=== PATIENT | female | born 1950 | race Caucasian/White ===

== ENCOUNTER 2024-01-23 09:45 | Outpatient (AMB) | payer BC, SELFPAY ==
--- NOTE | 2024-01-23 10:22 | MHC.PC.OV ---
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 Rice. She would like an order for mammogram. Allergies acetaminophen [From Vicodin] Allergy (Mild, Verified 01/23/24 10:33) Hives hydrocodone [From Vicodin] Allergy (Mild, Verified 01/23/24 10:33) Hives Medication List - Last Reconciled 01/23/24 by Michael Mcnally MD calcium-vitamin D3-vitamin K 650 mg-12.5 mcg-40 mcg (Viactiv) tabs PO lutein-zeaxanthin 25-5 mg caps PO multivitamin 1 tab PO DAILY verapamil ER 125 mg PO DAILY Tobacco use date assessed: 01/23/24 Fall risk assessment: No Falls in past year Last assessed Fall Risk: 01/23/24 Dental Screening Dental Screen Date: 01/23/24 Did you have a dental visit in the last 12 months?: Yes Did you have a dental problem in the last 6 months where you did not have access to dental care?: No Was dental information given to patient?: Patient has dentist HPI 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 ?? Prior PCP:? Dr Hall Last office visit/CPE:? June for HTN. CPE 1yr Acute issue(s):? Needs Mammogram L ear pusitile tinitus & has Carotid U/S ?? PMHx:? SVT seeing licensed aircraft maintenance engineer, Dr. Rice, Diverticulitis, Colon Polyps. SurgHx:? Lap partial colectomy 2010 for diverticulitis. B/l knee replacements FH: CVAs SocHx:? Quit 46 yrs ago, EtOH rare. 2022 Colonoscopy w/ polyps & f/u May 2025. 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 Hypertension Surgical History (Updated 01/23/24 @ 10:47 by Erinn Ellis CMA) History of bilateral knee replacement Family History (Updated 01/23/24 @ 10:50 by Erinn Ellis CMA) Mother COPD (chronic obstructive pulmonary disease) Emphysema lung Father Lung cancer Paternal Grandmother Stroke Social History Housing: House Patient Tobacco Use Status: Former Tobacco user e-Cigarette/Vaping Use: Never Used service: No Current occupational status: retired Cognitive needs: No Hearing needs: No Vision needs: Yes (Patient wears glasses) Questionnaire PHQ-9 Over the last 2 weeks, how often have you been bothered by any of the following problems? 1. Little interest or pleasure in doing things: not at all 2. Feeling down, depressed, or hopeless: not at all 3. Trouble falling or staying asleep, or sleeping too much: not at all 4. Feeling tired or having little energy: not at all 5. Poor appetite or overeating: not at all 6. Feeling bad about yourself - or that you are a failure or have let yourself or your family down: not at all 7. Trouble concentrating on things, such as reading the newspaper or watching television: not at all 8. Moving or speaking so slowly that other people could have noticed. Or the opposite - being so fidgety or restless that you have been moving around a lot more than usual: not at all 9. Thoughts that you would be better off or of hurting yourself in some way: not at all Total score: 0 Depression Screening Interpretation: Negative Depression Screening Done: Yes 38415 - PHQ-9 Billing: Yes Source: Developed by Drs. Wade Mcginnis, Sandrine Priest, Brodie Tate and colleagues, with an educational julia from [employer]. Thrive Questionnaire Date Thrive assessed: 01/23/24 I am a: Patient What is your living situation today?: I have a steady place to live Within the past 12 months, did the food you bought not last and you didn't have the money to get more?: Never true Within the past 12 months, did you worry whether your food would run out before you got money to buy more?: Never true Do you have trouble paying for medicines?: No Do you have trouble getting transportation to medical appointments?: No Do you have trouble paying your heating and electricity bill?: No Do you have trouble taking care of your child, family member or friend?: No Do you have trouble with day-to-day activities such as bathing, preparing meals, shopping, managing finances, etc.?: No Are you currently unemployed and looking for a job?: No Are you interested in more education?: No THRIVE Score: 0 AUDIT C Alcohol Use Questionnaire (AUDIT-C) 1. How often do you have a drink containing alcohol?: Never 3. How often do you have six or more drinks on one occasion?: Never Total Score: 0 HARRISON-7 AMB Questionnaire HARRISON-7 Date HARRISON - 7 assessed: 01/23/24 Feeling nervous, anxious, or on edge: 0 = Not at all Not being able to stop or control worryin = Not at all Worrying too much about different things: 0 = Not at all Trouble relaxin = Not at all Being so restless that it is hard to sit still: 0 = Not at all Becoming easily annoyed or irritable: 0 = Not at all Feeling afraid as if something awful might happen: 0 = Not at all Total HARRISON-7 score (0-4 normal; 5-9 mild; 10-14 moderate; 15-21 severe): 0 Source: Developed by Drs. Wade Mcginnis, Sandrine Priest, Brodie Tate and colleagues, with an educational julia from [employer]. HARRISON-7 Assessment Billing HARRISON-7 Assessment Tool: HARRISON-7 Assessment 13024 Review of Systems Const Denies chills, Denies fatigue, Denies fever(s), Denies headache(s) and Denies weakness ENT Denies dizziness and Denies headache(s) Card Denies chest pain, Denies lightheadedness, Denies dyspnea and Denies other (Palpitations) Resp Denies cough, Denies dyspnea, Denies wheezing and Denies other ( shortness of breath) Musc Denies numbness and Denies tingling Neuro Denies dizziness, Denies headache(s), Denies numbness, Denies tingling, Denies paresthesias and Denies weakness Psych Denies anxiety and Denies depression Endo Denies fatigue Aller/Immun Denies wheezing Physical exam (Primary Care) Vital Signs: Last Vital Signs Pulse 67 01/23/24 10:26 BP 130/72 01/23/24 10:26 Pulse Ox 97 01/23/24 10:26 Oxygen Delivery Method Room Air 01/23/24 10:26 BMI result Body Mass Index 31.5 Tobacco/Smoking Status: Tobacco use Status Tobacco use date assessed 01/23/24 01/23/24 10:54 Patient Tobacco Use Status Former Tobacco user 01/23/24 10:54 e-Cigarette/Vaping Use Never Used 01/23/24 10:54 PHQ-9: PHQ-9 Score PHQ-9: Total score 0 01/23/24 10:54 Depression Screening Interpretation: Negative Thrive Assessment: Date of Thrive Assessment Date Thrive assessed 01/23/24 01/23/24 10:54 Const General: no acute distress and well developed Nutritional Appearance: well nourished Orientation/consciousness: patient oriented x3 HENMT Head: Yes normocephalic and Yes atraumatic Eyes General: appearance normal, both eyes and all related structures Pupils: Equal, round and reactive pupils present EOM: EOMs intact bilaterally Resp Effort & Inspection: normal respiratory effort Auscultation: clear to auscultation bilaterally Cardio Rate: regular rate Rhythm: regular rhythm Heart sounds: S1 normal heart sound present, S2 normal heart sound present, no gallops, no murmurs and no rubs Neuro General: patient oriented x3 and gait normal Cranial nerves: Yes Equal, round and reactive pupils present Psych Affect: normal affect Assessment and Plan Assessment & Plan (1) Hypertension: Code(s): I10 - Essential (primary) hypertension Plan: Blood?pressure?is?controlled?on?verapamil?which?is?also?used?for?her?SVTs.??Goal?is?less?than?140/90 Continue?current?medication (2) SVT (supraventricular tachycardia): Code(s): I47.10 - Supraventricular tachycardia, unspecified Plan: Heart?rate?is?controlled Continue?verapamil Follow-up?with?Cardiology?as?recommended (3) Pulsatile tinnitus, left ear: Code(s): H93.A2 - Pulsatile tinnitus, left ear Plan: Pulsatile?tinnitus?with?left?carotid?bruit She?has?a?carotid?ultrasound?ordered?by?her?licensed aircraft maintenance engineer?already Follow-up?with?Cardiology (4) Bruit: Code(s): R09.89 - Other specified symptoms and signs involving the circulatory and respiratory systems Plan: As?above (5) Laboratory exam ordered as part of routine general medical examination: Code(s): Z00.00 - Encounter for general adult medical examination without abnormal findings Plan: Check?labs Plan Patient?will?get?mammogram?at?[facility]. Order?is?in We?can?follow-up?on?this?at?her?next?visit?if?it?is?available Orders: Orders Complete Blood Count Auto Diff Today Z00.00 - Encounter for general adult medical examination without abnormal findings MM tomosynthesis screening BI Today Z12.31 - Encounter for screening mammogram for malignant neoplasm of breast Vitamin D 25-OH Total Today E55.9 - Vitamin D deficiency, unspecified Comprehensive [place]. Panel Fast Today Z00.00 - Encounter for general adult medical examination without abnormal findings Lipid Panel Today Z00.00 - Encounter for general adult medical examination without abnormal findings Microalbumin, Random (w Creat) Today I10 - Essential (primary) hypertension TSH reflex Free T4 Today Z00.00 - Encounter for general adult medical examination without abnormal findings UA and rflx microscopic Today Z00.00 - Encounter for general adult medical examination without abnormal findings Medications: New verapamil ER 120 mg PO DAILY Coding Level of Care Code New Pt Level 3 (53045) Diagnoses Hypertension I10 SVT (supraventricular tachycardia) I47.10 Pulsatile tinnitus, left ear H93.A2 Bruit R09.89 Laboratory exam ordered as part of routine general medical examination Z00.00 Additional Codes HARRISON-7 Assessment Billing - HARRISON-7 Assessment Tool: HARRISON-7 Assessment [id number] ([id number])
[2024-01-23 10:26] VITALS: BP 130/72; PULSE 67; O2SAT 97; BMI 31.5
== END 2024-01-23 11:27 | disposition home or self-care (01) ==
PROVIDERS: PCP Family Medicine; Visit Provider Family Medicine
DX: I10 Essential (primary) hypertension (principal); I47.10 Supraventricular tachycardia, unspecified; H93.A2 Pulsatile tinnitus, left ear; R09.89 Other specified symptoms and signs involving the circulatory and respiratory systems
CPT/HCPCS: 99203

== ENCOUNTER 2024-04-09 10:14 | Outpatient (AMB) | payer BC, SELFPAY ==
--- NOTE | 2024-04-09 10:28 | MHC.PC.OV ---
Vital Signs 04/09/24 10:29 Height 5 ft 4.5 in Weight 184 lb 2 oz BMI 31.1 BP 118/70 Blood Pressure Location Lt brachial Position Sitting Respiration 14 Pulse 76 Pulse Source Pulse Oximeter Pulse Oximetry (%) 96 Oxygen Delivery Method Room Air Intake Visit Reasons: CPE with f/u labs Intake Note: physical and follow up on labs. Would like SVT removed from chart. She never had it, she has atrial tachycardia Allergies verapamil Allergy (Severe, Verified 04/09/24 11:02) Constipation acetaminophen [From Vicodin] Allergy (Mild, Verified 04/09/24 10:37) Hives hydrocodone [From Vicodin] Allergy (Mild, Verified 04/09/24 10:37) Hives aliskiren [From Tekturna] Allergy (Unknown, Verified 04/09/24 11:02) tachycardia amlodipine Allergy (Unknown, Verified 04/09/24 11:02) Palpitations hydrochlorothiazide Allergy (Unknown, Verified 04/09/24 11:02) swollen tongue and mouth dryness lisinopril Allergy (Unknown, Verified 04/09/24 11:02) dry cough metoprolol Allergy (Unknown, Verified 04/09/24 11:02) hair loss and dry mouth atenolol Adverse Reaction (Verified 04/09/24 11:02) Hair loss and dry mouth atenolol Allergy (Unknown, Uncoded 04/09/24 11:02) hair loss and mouth dryness Medication List - Last Reconciled 04/09/24 by Esmer Morfin PA-C calcium-vitamin D3-vitamin K 650 mg-12.5 mcg-40 mcg (Viactiv) tabs PO docusate sodium (Colace) 100 mg PO DAILY [fiber gummies .] lutein-zeaxanthin 25-5 mg caps PO multivitamin 1 tab PO DAILY peg 400-propylene glycol 0.4-0.3 % (Systane (propylene glycol)) 2 drps ophthalmic (eye) BID-QID PRN verapamil ER 120 mg PO DAILY Tobacco use date assessed: 01/23/24 Dental Screening Dental Screen Date: 01/23/24 HPI CPE with f/u labs HPI Details Patient is a 73-year-old female who presents today for a physical exam. She recently established care with Dr. Mcnally. -she had labs done at [facility] which were overall reassuring. Her glucose was slightly elevated at 103. Had an A1c within the last year and states it was 5.4. No polyuria or polydispsia. Renal function and lfts were wnl. No anemia. TSH was WNL. Pulm: gets bronchitis every fall/winter and would like a new steroid inhaler. flovent not on formulary CV: Blood pressure today in the office is 118/70. She has a history of atrial tachycardia and hypertension. Controlled with verapamil 120 mg. She had a carotid ultrasound in January which was overall reassuring. Her LDL was 116, HDL 82, trigs 81, total cholesterol 212. Musculoskeletal: has had knees replaced and will need prophlyatic antibiotics. 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 Hypertension Surgical History (Updated 01/23/24 @ 10:47 by Erinn Ellis [facility]) History of bilateral knee replacement Family History (Updated 04/09/24 @ 10:44 by Kyleigh Haskins CMA) Mother COPD (chronic obstructive pulmonary disease) Emphysema lung Father Prostate cancer Paternal Grandmother Stroke Social History Housing: House Patient Tobacco Use Status: Former Tobacco user e-Cigarette/Vaping Use: Never Used service: No Current occupational status: retired Cognitive needs: No Hearing needs: No Vision needs: Yes (Patient wears glasses) Questionnaire PHQ-9 Over the last 2 weeks, how often have you been bothered by any of the following problems? 1. Little interest or pleasure in doing things: not at all 2. Feeling down, depressed, or hopeless: not at all 3. Trouble falling or staying asleep, or sleeping too much: not at all 4. Feeling tired or having little energy: not at all 5. Poor appetite or overeating: not at all 6. Feeling bad about yourself - or that you are a failure or have let yourself or your family down: not at all 7. Trouble concentrating on things, such as reading the newspaper or watching television: not at all 8. Moving or speaking so slowly that other people could have noticed. Or the opposite - being so fidgety or restless that you have been moving around a lot more than usual: not at all 9. Thoughts that you would be better off or of hurting yourself in some way: not at all Total score: 0 Depression Screening Interpretation: Negative Depression Screening Done: Yes 81078 - PHQ-9 Billing: Yes Source: Developed by Drs. Wade Mcginnis, Sandrine Priest, Brodie Tate and colleagues, with an educational julia from [employer]. Thrive Questionnaire Date Thrive assessed: 04/09/24 I am a: Patient What is your living situation today?: I have a steady place to live Within the past 12 months, did the food you bought not last and you didn't have the money to get more?: Never true Within the past 12 months, did you worry whether your food would run out before you got money to buy more?: Never true Do you have trouble paying for medicines?: No Do you have trouble getting transportation to medical appointments?: No Do you have trouble paying your heating and electricity bill?: No Do you have trouble taking care of your child, family member or friend?: No Do you have trouble with day-to-day activities such as bathing, preparing meals, shopping, managing finances, etc.?: No Are you currently unemployed and looking for a job?: No Are you interested in more education?: No Please select the resources that you would like help with: None THRIVE Score: 0 HARRISON-7 AMB Questionnaire HARRISON-7 Date HARRISON - 7 assessed: 01/23/24 Feeling nervous, anxious, or on edge: 0 = Not at all Not being able to stop or control worryin = Not at all Worrying too much about different things: 0 = Not at all Trouble relaxin = Not at all Being so restless that it is hard to sit still: 0 = Not at all Becoming easily annoyed or irritable: 0 = Not at all Feeling afraid as if something awful might happen: 0 = Not at all Total HARRISON-7 score (0-4 normal; 5-9 mild; 10-14 moderate; 15-21 severe): 0 Source: Developed by Drs. Wade Mcginnis, Sandrine Priest, Brodie Tate and colleagues, with an educational julia from [employer]. HARRISON-7 Assessment Billing HARRISON-7 Assessment Tool: HARRISON-7 Assessment [id number] Physical exam (Primary Care) Tobacco/Smoking Status: Tobacco use Status Tobacco use date assessed 01/23/24 04/09/24 10:31 Patient Tobacco Use Status Former Tobacco user 04/09/24 10:31 e-Cigarette/Vaping Use Never Used 04/09/24 10:31 Depression Screening Interpretation: Negative Thrive Assessment: Date of Thrive Assessment Date Thrive assessed 01/23/24 04/09/24 10:31 Const Orientation/consciousness: patient oriented x3 HENMT Ears: hearing grossly normal bilaterally and TM's normal bilaterally General nose exam: No nasal polyps present Face and sinus: Yes sinuses nontender Mouth: Normal oral and palatal mucosa present Eyes Pupils: Equal, round and reactive pupils present EOM: EOMs intact bilaterally Neck Neck: Yes full ROM and Yes no lymphadenopathy Thyroid: Thyroid normal Chest Chest palpation & inspection: normal inspection of the chest Resp Auscultation: clear to auscultation bilaterally Cardio Rate: regular rate Rhythm: regular rhythm Heart sounds: S1 normal heart sound present and S2 normal heart sound present Peripheral pulses: Peripheral pulses 2+ throughout GI Other: Soft, nontender Auscultation: normal bowel sounds Rectal Exam - Female: deferred General: Yes no CVA tenderness Back/Spine/Pelvis Other: Nontender Back: no CVA tenderness Skin General skin exam: no rashes or lesions noted Neuro General: patient oriented x3, gait normal, CN's II-XI intact bilaterally and deep tendon reflexes 2+ bilaterally Cranial nerves: Yes Equal, round and reactive pupils present Motor exam (neuro): 5/5 motor strength present throughout Sensory Exam: double simultaneous stimulation for sensation normal Coordination: [id number] test normal and Romberg test negative Extrem General: Yes normal to inspection and Yes full ROM Psych Affect: normal affect Attitude: cooperative Thought process: Normal thought process present Thought content: Normal thought content present Insight: Good insight present (Psych) Judgement: Good judgement present (Psych) Assessment and Plan Assessment & Plan (1) Routine general medical examination at a health care facility: Code(s): Z00.00 - Encounter for general adult medical examination without abnormal findings Plan: hm reviewed labs reviewed (2) Hypertension: Code(s): I10 - Essential (primary) hypertension Plan: wnl continue current plan Orders: Referrals Dermatology Referral Z12.83 - Encounter for screening for malignant neoplasm of skin Medications: New budesonide 90 mcg/actuation 1 inh inhalation Q12H 30 days 1 ea 3RF budesonide 90 mcg/actuation 1 inh inhalation Q12H 30 days 1 ea 3RF Patient Instructions: f/u 6 months or sooner prn. pt understands and agrees with the plan. Coding Level of Care Code Est Pt Prev Care >65y(70021) Diagnoses Routine general medical examination at a health care facility Z00.00 Hypertension I10 Additional Codes HARRISON-7 Assessment Billing - HARRISON-7 Assessment Tool: HARRISON-7 Assessment [id number] ([id number])
[2024-04-09 10:29] VITALS: BP 118/70; PULSE 76; RESP 14; O2SAT 96; BMI 31.1
== END 2024-04-09 11:21 | disposition home or self-care (01) ==
PROVIDERS: PCP Physician Assistant; Visit Provider Physician Assistant
DX: Z00.00 Encounter for general adult medical examination without abnormal findings (principal); I10 Essential (primary) hypertension
CPT/HCPCS: 99397

== ENCOUNTER 2024-10-15 09:52 | Outpatient (AMB) | payer BC, SELFPAY ==
--- NOTE | 2024-10-15 10:10 | A.OFFPC_ITS ---
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 Zinc Required: No Allergies verapamil Allergy (Severe, Verified 10/15/24 10:11) Constipation acetaminophen [From Vicodin] Allergy (Mild, Verified 10/15/24 10:11) Hives hydrocodone [From Vicodin] Allergy (Mild, Verified 10/15/24 10:11) Hives aliskiren [From Tekturna] Allergy (Unknown, Verified 10/15/24 10:11) tachycardia amlodipine Allergy (Unknown, Verified 10/15/24 10:11) Palpitations hydrochlorothiazide Allergy (Unknown, Verified 10/15/24 10:11) swollen tongue and mouth dryness lisinopril Allergy (Unknown, Verified 10/15/24 10:11) dry cough metoprolol Allergy (Unknown, Verified 10/15/24 10:11) hair loss and dry mouth atenolol Adverse Reaction (Verified 10/15/24 10:11) Hair loss and dry mouth atenolol Allergy (Unknown, Uncoded 10/15/24 10:11) hair loss and mouth dryness Tobacco use date assessed: 10/15/24 Dental Screening Dental Screen Date: 01/23/24 HPI htn HPI Details Patient is a 74-year-old female who presents today for a f/u. -she had labs done at [facility] which wer e overall reassuring. Her glucose was slightly elevated at 103. Had an A1c within the last year and states it was 5.4. No polyuria or polydispsia. Renal function and lfts were wnl. No anemia. TSH was WNL. Pulm: gets bronchitis every fall/winter and would like a new steroid inhaler. flovent not on formulary CV: Blood pressure today in the office is 132/72. Bps at home have been normal. She has a history of atrial tachycardia and hypertension. Controlled with verapamil 120 mg. She had a carotid ultrasound in January 2024 which was overall reassuring. Her LDL was 116, HDL 82, trigs 81, total cholesterol 212. Follows with Dr. Hansen Musculoskeletal: has had knees replaced and will need prophlyatic antibiotics. 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 Hypertension Surgical History History of bilateral knee replacement Family History Mother COPD (chronic obstructive pulmonary disease) Emphysema lung Father Prostate cancer Paternal Grandmother Stroke Social History (Updated 10/15/24 @ 10:17 by Kyleigh Haskins CMA) Housing: House Alcohol intake: current Patient Tobacco Use Status: Former Tobacco user e-Cigarette/Vaping Use: Never Used Use of substances other than those prescribed or required for medical reasons: No service: No Current occupational status: retired Cognitive needs: No Hearing needs: No Vision needs: Yes (Patient wears glasses) Questionnaire Thrive Questionnaire Date Thrive assessed: 10/08/24 I am a: Patient What is your living situation today?: I have a steady place to live Within the past 12 months, did the food you bought not last and you didn't have the money to get more?: Never true Within the past 12 months, did you worry whether your food would run out before you got money to buy more?: Never true Do you have trouble paying for medicines?: No Do you have trouble getting transportation to medical appointments?: No Do you have trouble paying your heating and electricity bill?: No Do you have trouble taking care of your child, family member or friend?: No Do you have trouble with day-to-day activities such as bathing, preparing meals, shopping, managing finances, etc.?: No Are you currently unemployed and looking for a job?: No Are you interested in more education?: No Please select the resources that you would like help with: None Currently or been in a relationship where the following occur: No concerns repo rted THRIVE Score: 0 AUDIT C Alcohol Use Questionnaire (AUDIT-C) 1. How often do you have a drink containing alcohol?: Never Total Score: 0 HARRISON-7 AMB Questionnaire HARRISON-7 Date HARRISON - 7 assessed: 01/23/24 Feeling nervous, anxious, or on edge: 0 = Not at all Not being able to stop or control worryin = Not at all Worrying too much about different things: 0 = Not at all Trouble relaxin = Not at all Being so restless that it is hard to sit still: 0 = Not at all Becoming easily annoyed or irritable: 0 = Not at all Feeling afraid as if something awful might happen: 0 = Not at all Total HARRISON-7 score (0-4 normal; 5-9 mild; 10-14 moderate; 15-21 severe): 0 Source: Developed by Drs. Wade Mcginnis, Sandrine Priest, Brodie Tate and colleagues, with an educational julia from [employer]. Physical exam (Primary Care) Vital Signs: Last Vital Signs Pulse 67 10/15/24 10:14 Resp 14 10/15/24 10:14 BP 132/72 10/15/24 10:14 Pulse Ox 97 10/15/24 10:14 Oxygen Delivery Method Room Air 10/15/24 10:14 BMI result Body Mass Index 31.3 Tobacco/Smoking Status: Tobacco use Status Tobacco use date assessed 10/15/24 10/15/24 10:17 Patient Tobacco Use Status Former Tobacco user 10/15/24 10:17 e-Cigarette/Vaping Use Never Used 10/15/24 10:17 Thrive Assessment: Date of Thrive Assessment Date Thrive assessed 10/08/24 10/15/24 10:17 Currently or been in a relationship where the following occur: No concerns reported Const Orientation/consciousness: patient oriented x3 HENMT Ears: hearing grossly normal bilaterally Neck Thyroid: Thyroid normal Lymphatic: no lymphadenopathy noted Resp Auscultation: clear to auscultation bilaterally Cardio Rate: regular rate Rhythm: regular rhythm Heart sounds: S1 normal heart sound present and S2 normal heart sound present GI Inspection: Yes normal to inspection Palpation (GI): Soft to palpation and Other GI palpation findings present (nontender, no cva tenderness) Auscultation: normoactive bowel sounds Rectal Exam - Female: deferred Skin General skin exam: no rashes or lesions noted Neuro General: patient oriented x3, gait normal and no focal motor deficits Coding Level of Care Code Est Pt Level 4 (89617) Complex EM visit Add On G2211 Diagnoses Primary hypertension I10 Hypertension type: primary hypertension Osteopenia M85.80 Atopic dermatitis of scalp L20.9 Atrial tachycardia, paroxysmal I47.19 Assessment & Plan Assessment & Plan (1) Hypertension: Code(s): I10 - Essential (primary) hypertension Category: Medical Qualifiers: Hypertension type: primary hypertension Qualified Code(s): I10 - Essential (primary) hypertension Plan: wnl continue current treatment plan (2) Osteopenia: Code(s): M85.80 - Other specified disorders of bone density and structure, unspecified site Category: Medical Plan: stable- does not want to continue with this (3) Atopic dermatitis of scalp: Code(s): L20.9 - Atopic dermatitis, unspecified Category: Medical Plan: improved with betamethasone (4) Atrial tachycardia, paroxysmal: Code(s): I47.19 - Other supraventricular tachycardia Category: Medical Plan: Follows with [facility] Cardiology Orders: Orders Complete Blood Count Auto Diff Today I10 - Essential (primary) hypertension, I47.19 - Other supraventricular tachycardia, L20.9 - Atopic dermatitis, unspecified, M85.80 - Other specified disorders of bone density and structure, unspecified site Lipid Panel Today I10 - Essential (primary) hypertension, I47.19 - Other supraventricular tachycardia, L20.9 - Atopic dermatitis, unspecified, M85.80 - Other specified disorders of bone density and structure, unspecified site TSH reflex Free T4 Today I10 - Essential (primary) hypertension, I47.19 - Other supraventricular tachycardia, L20.9 - Atopic dermatitis, unspecified, M85.80 - Other specified disorders of bone density and structure, unspecified site Vitamin D 25-OH Total Today I10 - Essential (primary) hypertension, I47.19 - Other supraventricular tachycardia, L20.9 - Atopic dermatitis, unspecified, M85.80 - Other specified disorders of bone density and structure, unspecified site Comprehensive [place]. Panel Fast Today I10 - Essential (primary) hypertension, I47.19 - Other supraventricular tachycardia, L20.9 - Atopic dermatitis, unspecified, M85.80 - Other specified disorders of bone density and structure, unspecified site UA CC w/rflx Micro + Cult Today I10 - Essential (primary) hypertension, I47.19 - Other supraventricular tachycardia, L20.9 - Atopic dermatitis, unspecified, M85.80 - Other specified disorders of bone density and structure, unspecified site, Z13.220 - Encounter for screening for lipoid disorders
[2024-10-15 10:14] VITALS: BP 132/72; PULSE 67; RESP 14; O2SAT 97; BMI 31.3
== END 2024-10-15 10:38 | disposition home or self-care (01) ==
PROVIDERS: PCP Physician Assistant; Visit Provider Physician Assistant
DX: I10 Essential (primary) hypertension (principal); M85.80 Other specified disorders of bone density and structure, unspecified site; L20.9 Atopic dermatitis, unspecified; I47.19 Other supraventricular tachycardia

== ENCOUNTER → 2024-10-15 09:52 | Outpatient (BNVA) | payer BC, SELFPAY | PROVIDERS: PCP Physician Assistant; Visit Provider Physician Assistant ==

== ENCOUNTER 2025-04-01 07:29 | Outpatient (REF) | payer BC, SELFPAY ==
[2025-04-01 11:12] LABS: MANUAL DIFF FLAG NO
[2025-04-01 11:13] LABS: Appearance Urine Clear; Glucose Urine UA Negative (Negative); PH 6.5 (5.0-9.0); Specific Gravity - Urine 1.020 (1.005-1.025); UMIC TRIGGER UACC YES
[2025-04-01 11:16] LABS: Hematocrit 40.1 % (37.0-47.0); Hemoglobin 12.8 g/dl (12.0-16.0); Imm Gran Abs Auto 0.03 X10*3/uL (0.00-0.03); Imm Gran Pct Auto 0.4 % (0.0-0.4); Lymphocytes Absolute Auto 2.6 X10*3/uL (1.2-4.9); Mean Corpuscular HGB Conc 31.9 g/dl (31.0-35.0); Mean Corpuscular Hemoglobin 30.8 pg (27.0-33.0); Mean Corpuscular Volume 96.6 fL (80.0-98.0); NRBC Abs Auto 0.000 X10*3/uL (0.0-0.012); NRBC Pct Auto 0.0 /100WBC (0.0-0.2); Platelet Count 261 X10*3/uL (160-400); Red Blood Count 4.15 X10*6/uL (4.20-5.50); White Blood Count 7.9 X10*3/uL (4.8-10.8)
[2025-04-01 11:42] LABS: Alanine Aminotransferase 14 U/L (0-31); Albumin Level 4.2 g/dL (3.5-5.0); Alkaline Phosphatase 96 U/L (39-117); Anion Gap 11 (12-20); Aspartate Amino Transferase 28 U/L (5-31); Blood Urea Nitrogen 16 mg/dL (9-16); Calcium 9.1 mg/dL (8.4-10.2); Carbon Dioxide 29 mmol/L (22-29); Chloride 105 mmol/L (96-108); Cholesterol 202 mg/dL (<200); Estimated Glomerular Filt Rate 55; HDL Cholesterol 69 mg/dL (>40); Potassium 3.8 mmol/L (3.3-5.1); Sodium 141 mmol/L (135-145); Total Protein 6.7 g/dL (6.5-8.0); Triglycerides 89 mg/dL (<150)
== END 2025-04-01 07:30 | disposition home or self-care (01) ==
LOC: HO.WFDLDS 07:29
PROVIDERS: Visit Provider Physician Assistant
DX: Z13.220 Encounter for screening for lipoid disorders (principal); I47.19 Other supraventricular tachycardia; I10 Essential (primary) hypertension; M85.80 Other specified disorders of bone density and structure, unspecified site; L20.9 Atopic dermatitis, unspecified
CPT/HCPCS: 36415; 80053; 80061; 81001; 82306; 84443; 85025

== ENCOUNTER 2025-04-15 07:37 | Outpatient (AMB) | payer BC, SELFPAY ==
--- NOTE | 2025-04-15 08:03 | MHC.PC.OV ---
Vital Signs 04/15/25 08:07 Height 5 ft 4.5 in Weight 184 lb 6 oz BMI 31.2 BP 132/64 Blood Pressure Location Lt brachial Position Sitting Respiration 14 Pulse 65 Pulse Source Pulse Oximeter Pulse Oximetry (%) 97 Oxygen Delivery Method Room Air Intake Visit Reasons: CPE Intake Note: Physical Abalone Processor Required: No Allergies verapamil Allergy (Severe, Verified 04/15/25 08:05) Constipation acetaminophen (From Vicodin) Allergy (Mild, Verified 04/15/25 08:05) Hives hydrocodone (From Vicodin) Allergy (Mild, Verified 04/15/25 08:05) Hives aliskiren (From Tekturna) Allergy (Unknown, Verified 04/15/25 08:05) tachycardia amlodipine Allergy (Unknown, Verified 04/15/25 08:05) Palpitations hydrochlorothiazide Allergy (Unknown, Verified 04/15/25 08:05) swollen tongue and mouth dryness lisinopril Allergy (Unknown, Verified 04/15/25 08:05) dry cough metoprolol Allergy (Unknown, Verified 04/15/25 08:05) hair loss and dry mouth atenolol Adverse Reaction (Verified 04/15/25 08:05) Hair loss and dry mouth atenolol Allergy (Unknown, Uncoded 04/15/25 08:05) hair loss and mouth dryness Medication List - Last Reconciled 04/15/25 by Esmer Morfin PA-C ascorbate calcium (vitamin C) 500 mg PO DAILY beclomethasone dipropionate 40 mcg/actuation (Qvar RediHaler) 1 inh inhalation Q12H PRN calcium-vitamin D3-vitamin K 650 mg-12.5 mcg-40 mcg (Viactiv) tabs PO cholecalciferol (vitamin D3) 50 mcg PO DAILY docusate sodium (Colace) 100 mg PO DAILY fluticasone furoate 100 mcg/actuation (Arnuity Ellipta) 1 inh inhalation DAILY lutein-zeaxanthin 25-5 mg caps PO multivitamin 1 tab PO DAILY peg 400-propylene glycol 0.4-0.3 % (Systane (propylene glycol)) 2 drps ophthalmic (eye) BID-QID PRN psyllium husk (Metamucil) 1 tbsp PO TID verapamil ER 120 mg PO DAILY zinc acetate (Galzin) 25 mg PO DAILY Tobacco use date assessed: 04/15/25 Fall risk assessment: No Falls in past year Last assessed Fall Risk: 04/15/25 Dental Screening Dental Screen Date: 04/15/25 Did you have a dental visit in the last 12 months?: Yes Did you have a dental problem in the last 6 months where you did not have access to dental care?: No Was dental information given to patient?: Patient has dentist HPI CPE HPI Details Patient is a 74-year-old female who presents today for a cpe. Pulm: Currently stable. She has inhalers at home if needed. CV: Blood pressure today in the office is 132/64. Bps at home have been normal. She has a history of atrial tachycardia and hypertension. Controlled with verapamil [address] Hansen -she had a carotid ultrasound done January 2024 which did show less than 50% stenosis with plaque in bilateral carotid arteries. Not on a statin. Prefers to avoid statin if possible. Last LDL was 116. Musculoskeletal: has had knees replaced and will need prophlyatic antibiotics. GI: Constipation is somewhat improved with Metamucil. 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 Hypertension Surgical History History of bilateral knee replacement Family History Mother COPD (chronic obstructive pulmonary disease) Emphysema lung Father Prostate cancer Paternal Grandmother Stroke Social History (Updated 04/15/25 @ 08:10 by Kyleigh Haskins CMA) Housing: House Alcohol intake: current Patient Tobacco Use Status: Former Tobacco user e-Cigarette/Vaping Use: Never Used service: No Current occupational status: retired Cognitive needs: No Hearing needs: No Vision needs: Yes (Patient wears glasses) Questionnaire PHQ-9 Over the last 2 weeks, how often have you been bothered by any of the following problems? 1. Little interest or pleasure in doing things: not at all 2. Feeling down, depressed, or hopeless: not at all 3. Trouble falling or staying asleep, or sleeping too much: not at all 4. Feeling tired or having little energy: not at all 5. Poor appetite or overeating: not at all 6. Feeling bad about yourself - or that you are a failure or have let yourself or your family down: not at all 7. Trouble concentrating on things, such as reading the newspaper or watching television: not at all 8. Moving or speaking so slowly that other people could have noticed. Or the opposite - being so fidgety or restless that you have been moving around a lot more than usual: not at all 9. Thoughts that you would be better off or of hurting yourself in some way: not at all Total score: 0 Depression Screening Interpretation: Negative Depression Screening Done: Yes 62910 - PHQ-9 Billing: Yes Source: Developed by Drs. Wade Mcginnis, Sandrine Priest, Brodie Tate and colleagues, with an educational julia from [employer]. Thrive Questionnaire Date Thrive assessed: 10/08/24 I am a: Patient What is your living situation today?: I have a steady place to live Within the past 12 months, did the food you bought not last and you didn't have the money to get more?: Never true Within the past 12 months, did you worry whether your food would run out before you got money to buy more?: Never true Do you have trouble paying for medicines?: No Do you have trouble getting transportation to medical appointments?: No Do you have trouble paying your heating and electricity bill?: No Do you have trouble taking care of your child, family member or friend?: No Do you have trouble with day-to-day activities such as bathing, preparing meals, shopping, managing finances, etc.?: No Are you currently unemployed and looking for a job?: No Are you interested in more education?: No Please select the resources that you would like help with: None Currently or been in a relationship where the following occur: No concerns reported THRIVE Score: 0 AUDIT C Alcohol Use Questionnaire (AUDIT-C) 2. How many drinks containing alcohol do you have on a typical day when you are drinking?: 1 or 2 3. How often do you have six or more drinks on one occasion?: Never Total Score: 0 Score Reviewed/Action Taken: Yes HARRISON-7 AMB Questionnaire HARRISON-7 Date HARRISON - 7 assessed: 01/23/24 Source: Developed by Drs. Wade Mcginnis, Sandrine Priest, Brodie Tate and colleagues, with an educational julia from [employer]. Physical exam (Primary Care) Vital Signs: Last Vital Signs Pulse 65 04/15/25 08:07 Resp 14 04/15/25 08:07 BP 132/64 04/15/25 08:07 Pulse Ox 97 04/15/25 08:07 Oxygen Delivery Method Room Air 04/15/25 08:07 BMI result Body Mass Index 31.2 Tobacco/Smoking Status: Tobacco use Status Tobacco use date assessed 04/15/25 04/15/25 08:08 Patient Tobacco Use Status Former Tobacco user 04/15/25 08:10 e-Cigarette/Vaping Use Never Used 04/15/25 08:10 PHQ-9: PHQ-9 Score PHQ-9: Total score 0 04/15/25 08:08 Depression Screening Interpretation: Negative Thrive Assessment: Date of Thrive Assessment Date Thrive assessed 10/08/24 04/15/25 08:04 Currently or been in a relationship where the following occur: No concerns reported Const Orientation/consciousness: patient oriented x3 HENMT Ears: hearing grossly normal bilaterally and TM's normal bilaterally General nose exam: No nasal polyps present Face and sinus: Yes sinuses nontender Mouth: Normal oral and palatal mucosa present Eyes Pupils: Equal, round and reactive pupils present EOM: EOMs intact bilaterally Neck Neck: Yes full ROM and Yes no lymphadenopathy Thyroid: Thyroid normal Chest Chest palpation & inspection: normal inspection of the chest Resp Auscultation: clear to auscultation bilaterally Cardio Rate: regular rate Rhythm: regular rhythm Heart sounds: S1 normal heart sound present and S2 normal heart sound present Peripheral pulses: Peripheral pulses 2+ throughout GI Other: Soft, nontender Auscultation: normal bowel sounds Rectal Exam - Female: deferred General: Yes no CVA tenderness Back/Spine/Pelvis Other: Nontender Back: no CVA tenderness Skin General skin exam: no rashes or lesions noted Neuro General: patient oriented x3, gait normal, CN's II-XI intact bilaterally and deep tendon reflexes 2+ bilaterally Cranial nerves: Yes Equal, round and reactive pupils present Motor exam (neuro): 5/5 motor strength present throughout Sensory Exam: double simultaneous stimulation for sensation normal Coordination: [id number] test normal and Romberg test negative Extrem General: Yes normal to inspection and Yes full ROM Psych Affect: normal affect Attitude: cooperative Thought process: Normal thought process present Thought content: Normal thought content present Insight: Good insight present (Psych) Judgement: Good judgement present (Psych) Results Reviewed Results Reviewed: Laboratory Tests 04/01/25 04/01/25 07:31 07:37 Sodium 141 Potassium 3.8 Chloride 105 Carbon Dioxide 29 Anion Gap 11 L BUN 16 Creatinine 0.98 Estimated GFR 55 Fasting Glucose 99 Calcium 9.1 Total Bilirubin 1.2 H AST 28 ALT 14 Alkaline Phosphatase 96 Total Protein 6.7 Albumin 4.2 Triglycerides 89 Cholesterol 202 H LDL Cholesterol, Calc 116 H HDL Cholesterol 69 25-OH Vitamin D Total 92.4 TSH 3.98 Urine Color Yellow Urine Appearance Clear Urine pH 6.5 Ur Specific [place] 1.020 Urine Protein Negative Urine Glucose (UA) Negative Urine Ketones Negative Urine Blood Negative Urine Nitrite Negative Coding Level of Care Code Est Pt Prev Care >65y(42666) Diagnoses Routine general medical examination at a health care facility Z00.00 Primary hypertension I10 Hypertension type: primary hypertension Atrial tachycardia, paroxysmal I47.19 Mild atherosclerosis of both carotid arteries I65.23 Dyslipidemia E78.5 CKD (chronic kidney disease) stage 3, GFR 30-59 ml/min N18.30 Additional Codes PHQ-9 - 25276 - PHQ-9 Billing: Yes ([id number]) Assessment & Plan Assessment & Plan (1) Routine general medical examination at a health care facility: Code(s): Z00.00 - Encounter for general adult medical examination without abnormal findings Plan: Health maintenance reviewed. Labs reviewed. (2) Hypertension: Code(s): I10 - Essential (primary) hypertension Category: Medical Qualifiers: Hypertension type: primary hypertension Qualified Code(s): I10 - Essential (primary) hypertension Plan: WNL. Continue current regimen (3) Atrial tachycardia, paroxysmal: Code(s): I47.19 - Other supraventricular tachycardia Category: Medical Plan: Very well-controlled (4) Mild atherosclerosis of both carotid arteries: Code(s): I65.23 - Occlusion and stenosis of bilateral carotid arteries Category: Medical Plan: Reviewed last lipids. Not on a statin. We will recheck ultrasound in 6 months or so to make sure there is no significant change. She is going to work on some lifestyle modifications. (5) Dyslipidemia: Code(s): E78.5 - Hyperlipidemia, unspecified Category: Medical Plan: As above (6) CKD (chronic kidney disease) stage 3, GFR 30-59 ml/min: Code(s): N18.30 - Chronic kidney disease, stage 3 unspecified Category: Medical Plan: Stable. Generally avoids NSAIDs. Orders: Orders US carotid duplex BI 6 Months I10 - Essential (primary) hypertension, I47.19 - Other supraventricular tachycardia, I65.23 - Occlusion and stenosis of bilateral carotid arteries Comprehensive Met. Panel Today E78.5 - Hyperlipidemia, unspecified, I10 - Essential (primary) hypertension, I47.19 - Other supraventricular tachycardia, I65.23 - Occlusion and stenosis of bilateral carotid arteries, N18.30 - Chronic kidney disease, stage 3 unspecified, Z00.00 - Encounter for general adult medical examination without abnormal findings Hemoglobin A1c Today E78.5 - Hyperlipidemia, unspecified, I10 - Essential (primary) hypertension, I47.19 - Other supraventricular tachycardia, I65.23 - Occlusion and stenosis of bilateral carotid arteries, N18.30 - Chronic kidney disease, stage 3 unspecified, R73.01 - Impaired fasting glucose, Z00.00 - Encounter for general adult medical examination without abnormal findings Complete Blood Count Auto Diff Today E78.5 - Hyperlipidemia, unspecified, I10 - Essential (primary) hypertension, I47.19 - Other supraventricular tachycardia, I65.23 - Occlusion and stenosis of bilateral carotid arteries, N18.30 - Chronic kidney disease, stage 3 unspecified, Z00.00 - Encounter for general adult medical examination without abnormal findings Lipid Panel Today E78.5 - Hyperlipidemia, unspecified, I10 - Essential (primary) hypertension, I47.19 - Other supraventricular tachycardia, I65.23 - Occlusion and stenosis of bilateral carotid arteries, N18.30 - Chronic kidney disease, stage 3 unspecified, Z00.00 - Encounter for general adult medical examination without abnormal findings Medications: Changed From beclomethasone dipropionate 40 mcg/actuation (Qvar RediHaler) 1 inh inhalation Q12H 30 days 10.6 grams 3RF To beclomethasone dipropionate 40 mcg/actuation (Qvar RediHaler) 1 inh inhalation Q12H PRN
[2025-04-15 08:07] VITALS: BP 132/64; PULSE 65; RESP 14; O2SAT 97; BMI 31.2
== END 2025-04-15 08:44 | disposition home or self-care (01) ==
LOC: HO.HMCFM 07:38
PROVIDERS: PCP Physician Assistant; Visit Provider Physician Assistant
DX: Z00.00 Encounter for general adult medical examination without abnormal findings (principal); I12.9 Hypertensive chronic kidney disease with stage 1 through stage 4 chronic kidney disease, or unspecified chronic kidney disease; N18.30 Chronic kidney disease, stage 3 unspecified; I47.19 Other supraventricular tachycardia; I65.23 Occlusion and stenosis of bilateral carotid arteries; E78.5 Hyperlipidemia, unspecified

== ENCOUNTER → 2025-04-15 07:37 | Outpatient (BNVA) | payer BC, SELFPAY | PROVIDERS: PCP Physician Assistant; Visit Provider Physician Assistant | DX: Z00.00 Encounter for general adult medical examination without abnormal findings (principal); I47.19 Other supraventricular tachycardia; I65.23 Occlusion and stenosis of bilateral carotid arteries; E78.5 Hyperlipidemia, unspecified; I12.9 Hypertensive chronic kidney disease with stage 1 through stage 4 chronic kidney disease, or unspecified chronic kidney disease; N18.30 Chronic kidney disease, stage 3 unspecified | CPT/HCPCS: 96127 ==

== ENCOUNTER 2025-06-10 13:53 | Outpatient (AMB) | payer BC, SELFPAY ==
--- NOTE | 2025-06-10 14:04 | HO.NEPHOV ---
Vital Signs 06/10/25 14:06 Height 5 ft 4.5 in Weight 179 lb 2 oz BMI 30.3 BP 134/72 Blood Pressure Location Lt brachial Position Sitting Pulse 75 Pulse Source Pulse Oximeter Pulse Oximetry (%) 98 Oxygen Delivery Method Room Air Intake Visit Reasons: INP:Abnormal results of kidney function studies Supervisor Ride Assembly Required: No Accompanied by: Self / Same As Patient Allergies verapamil Allergy (Severe, Verified 06/10/25 14:06) Constipation acetaminophen (From Vicodin) Allergy (Mild, Verified 06/10/25 14:06) Hives hydrocodone (From Vicodin) Allergy (Mild, Verified 06/10/25 14:06) Hives aliskiren (From Tekturna) Allergy (Unknown, Verified 06/10/25 14:06) tachycardia amlodipine Allergy (Unknown, Verified 06/10/25 14:06) Palpitations hydrochlorothiazide Allergy (Unknown, Verified 06/10/25 14:06) swollen tongue and mouth dryness lisinopril Allergy (Unknown, Verified 06/10/25 14:06) dry cough metoprolol Allergy (Unknown, Verified 06/10/25 14:06) hair loss and dry mouth atenolol Adverse Reaction (Verified 06/10/25 14:06) Hair loss and dry mouth atenolol Allergy (Unknown, Uncoded 04/15/25 08:05) hair loss and mouth dryness HPI Comments Details: I had the privilege of seeing 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 She is hypertensive since she has been in her 40's and had been on multiple medications. She had side effects from a lot of BP lowering medications. She has H/O atrial tachycardia and is currently on Verapamil which is controlling her HR as well as BP. She recently was told that she has CKD 3 which she is concerned about. She is not a diabetic. She has H/O carotid bruit unilaterally as well as < 50 % stenosis with plaque in bilateral carotid arteries. She denies having proteinuria, edema, excessive NSAID use. She has no bone or back pain, no weight loss. She has H/O Neurofibromatosis. 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 Hypertension Surgical History History of bilateral knee replacement Family History Mother COPD (chronic obstructive pulmonary disease) Emphysema lung Father Prostate cancer Paternal Grandmother Stroke Social History Housing: House Alcohol intake: current Patient Tobacco Use Status: Former Tobacco user e-Cigarette/Vaping Use: Never Used service: No Current occupational status: retired Cognitive needs: No Hearing needs: No Vision needs: Yes (Patient wears glasses) Review of Systems Const All systems reviewed & are unremarkable except as noted in HPI and below Physical Exam Vital Signs: Last Vital Signs Pulse 75 06/10/25 14:06 BP 134/72 06/10/25 14:06 Pulse Ox 98 06/10/25 14:06 Oxygen Delivery Method Room Air 06/10/25 14:06 BMI result Body Mass Index 30.3 Const General: comfortable and no acute distress Orientation/consciousness: patient oriented x3 HEENT Head: Yes normocephalic Mouth: Normal oral and palatal mucosa present Eyes EOM: EOMs intact bilaterally Neck Neck: Yes supple Carotids: bruit Resp Auscultation: clear to auscultation bilaterally Cardio Jugular venous distension: no JVD Rate: regular rate GI Palpation (GI): Soft to palpation Auscultation: normal bowel sounds General: Yes no CVA tenderness Back/Spine/Pelvis Back: no CVA tenderness Skin General skin exam: no rashes or lesions noted Neuro General: patient oriented x3 and moves all extremities Extrem General: Yes no pedal edema Results Reviewed Nephrology Results: Hgb, (12.0-16.0) 12.8 g/dl 04/01/25 WBC, (4.8-10.8) 7.9 X10*3/uL 04/01/25 Plt Count, (160-400) 261 X10*3/uL 04/01/25 Sodium, (135-145) 141 mmol/L 04/01/25 Potassium, (3.3-5.1) 3.8 mmol/L 04/01/25 Chloride, (96-108) 105 mmol/L 04/01/25 Carbon Dioxide, (22-29) 29 mmol/L 04/01/25 BUN, (9-16) 16 mg/dL 04/01/25 Creatinine, (0.5-1.4) 0.98 mg/dL 04/01/25 Calcium, (8.4-10.2) 9.1 mg/dL 04/01/25 Urine Protein, (Neg-Trace) Negative mg/dL 04/01/25 Assessment & Plan Assessment & Plan (1) Decreased GFR: Code(s): R94.4 - Abnormal results of kidney function studies Category: Medical (2) Hypertension: Code(s): I10 - Essential (primary) hypertension Category: Medical Qualifiers: Hypertension type: primary hypertension Qualified Code(s): I10 - Essential (primary) hypertension (3) Neurofibromatosis: Code(s): Q85.00 - Neurofibromatosis, unspecified Category: Medical Plan Rae has H/O marginal rise in serum creatinine over years but stable. She has H/O hypertension from her 40's. She likely has vascular disease causing hypertension as well as mild drop in GFR given carotid plaques. Differential diagnosis is mild drop in GFR due to long standing hypertension. She has no H/O PAD, CHF, CAD or CVA. She has H/O neurofibromatosis. She never had a renal USS. Renal lesions in neurofibromatosis most commonly are renal artery stenosis and aneurysms which can lead lead to renovascular hypertension. Other possible lesions include external compression from neurofibromas, renal infarction or peritubular sclerosing nodules. Minimal change disease, membranous nephropathy, IgA nephropathy are possibilities but unlikely in her case given there is no H/O proteinuria or M/S hematuria. She maintains good hydration and avoids excessive NSAID's. I have ordered cr clearance and renal imaging as well as Doppler of renal arteries. I did not make any medication changes today. Answered all questions and further management is pending evolving data. Orders: Orders Creatinine Clearance Urine 24U 3 Months I10 - Essential (primary) hypertension, R94.4 - Abnormal results of kidney function studies Blood Urea Nitrogen 3 Months I10 - Essential (primary) hypertension, R94.4 - Abnormal results of kidney function studies Electrolytes 3 Months I10 - Essential (primary) hypertension, R94.4 - Abnormal results of kidney function studies Creatinine 3 Months I10 - Essential (primary) hypertension, R94.4 - Abnormal results of kidney function studies US renal BI 1 Month I10 - Essential (primary) hypertension, Q85.00 - Neurofibromatosis, unspecified, R94.4 - Abnormal results of kidney function studies US renal doppler 1 Month I10 - Essential (primary) hypertension, Q85.00 - Neurofibromatosis, unspecified, R94.4 - Abnormal results of kidney function studies Coding Level of Care Code New Pt Level 4 (89803) Diagnoses Decreased GFR R94.4 Primary hypertension I10 Hypertension type: primary hypertension Neurofibromatosis Q85.00
[2025-06-10 14:06] VITALS: BP 134/72; PULSE 75; O2SAT 98; BMI 30.3
== END 2025-06-10 14:42 | disposition home or self-care (01) ==
LOC: HO.HKA 13:54
PROVIDERS: PCP Physician Assistant; Referring Provider Physician Assistant; Visit Provider Internal Medicine Nephrology
DX: R94.4 Abnormal results of kidney function studies (principal); I10 Essential (primary) hypertension; Q85.00 Neurofibromatosis, unspecified
CPT/HCPCS: 99204